=== PATIENT | male | born 1955 | race Two or more races ===

== ENCOUNTER 2021-02-06 06:10 | Day surgery (SDC) | payer OTHER ==
[~2021-02-06 06:10] MED LIST: AMLODIPINE BESY10 MG PO; CYCLOBENZAPRINE PO; GLIMEPIRIDE2 M1 PO; IRBESARTAN-HCT1 EAC1 PO; LEVOFLOXACIN PO; NABUMETONE750 MG PO; TRADJENTA5 MG PO
[2021-02-06] MEDS ORDERED: DUI500 PO (14:29)
[2021-02-06] MEDS ORDERED: PERCOCET 5-3251 EACH PO (14:29)
== END 2021-02-06 17:00 | disposition home or self-care (01) ==
LOC: CIR.AMB 06:10
PROVIDERS: ATTEND Orthopaedic Surgery
DX: S52.572A Other intraarticular fracture of lower end of left radius, initial encounter for closed fracture (principal); S52.692A Other fracture of lower end of left ulna, initial encounter for closed fracture; Z20.822 Contact with and (suspected) exposure to COVID-19
CPT/HCPCS: 25609; 20902; 25101; 25652; C1776

== ENCOUNTER 2022-10-11 09:35 | Inpatient (IN) | payer OTHER ==
[~2022-10-11] VITALS: Ht 170.2 cm; Wt 94.3 kg
[~2022-10-11 09:35] MED LIST changes: +DUI500 PO; +PERCOCET 5-3251 EACH PO
[2022-10-11] MEDS ORDERED: LIPITOR40 MG PO (13:11)
[2022-10-15] MEDS ORDERED: NEO-POLYMYXIN-H10 M1 (09:25)
[2022-10-15] MEDS ORDERED: VALSARTAN-HCTZ1 EAC3 (09:25)
[2022-10-18] MEDS ORDERED: NEURONTIN300 MG PO (14:20)
[2022-10-18] MEDS ORDERED: ACETAMINOPHEN500 M2 PO (14:20)
== END 2022-10-18 15:16 | disposition home or self-care (01) | DRG 330 ==
LOC: SURH 10-15 05:10 → O/R 10-15 05:10 → SURH 10-15 09:45
PROVIDERS: ADMIT Surgery; ATTEND Surgery
PROC: 0DBU4ZZ Excision of Omentum, Percutaneous Endoscopic Approach (ICD-10-PCS; 2022-10-15)
PROC: 07BB4ZZ Excision of Mesenteric Lymphatic, Percutaneous Endoscopic Approach (ICD-10-PCS; 2022-10-15)
PROC: 0DTF4ZZ Resection of Right Large Intestine, Percutaneous Endoscopic Approach (ICD-10-PCS; principal; 2022-10-15 09:45)
DX: D12.2 Benign neoplasm of ascending colon (principal); K92.1 Melena; D37.4 Neoplasm of uncertain behavior of colon